=== PATIENT | female | born 1995 | race Asian ===

== ENCOUNTER 2017-12-02 18:01 | Outpatient (CLI) | payer BC, OTHER ==
[~2017-12-02] VITALS: Ht 170.2 cm; Wt 81.8 kg
== END 2017-12-02 19:40 | disposition home or self-care (01) ==
LOC: LDOP 18:01
PROVIDERS: ATTEND Obstetrics & Gynecology
DX: O47.9 False labor, unspecified (principal); O99.89 Other specified diseases and conditions complicating pregnancy, childbirth and the puerperium; M94.0 Chondrocostal junction syndrome [Tietze]; Z3A.00 Weeks of gestation of pregnancy not specified
CPT/HCPCS: 59025; 99211; G0463

== ENCOUNTER 2017-12-02 19:48 | Emergency (ER) | payer BC, OTHER ==
[~2017-12-02] VITALS: Ht 170.2 cm; Wt 81.8 kg
[2017-12-02 20:33] LABS: BASOPHILS # (AUTO) 0.04 x10^3/uL (0-0.1); BASOPHILS % (AUTO) 0 % (0-1); EOSINOPHILS # (AUTO) 0.04 x10^3/uL (0-0.4); EOSINOPHILS % (AUTO) 0 % (1-7); LYMPHOCYTES # (AUTO) 1.65 x10^3/uL (1-3.4); LYMPHOCYTES % (AUTO) 17 % (22-44); MD NO; MEAN CORPUSCULAR HEMOGLOBIN 31.3 pg (27.0-34.8); MEAN CORPUSCULAR HGB CONC 34.2 g/dL (32.4-35.8); MEAN CORPUSCULAR VOLUME 91.7 fL (80-100); MEAN PLATELET VOLUME 9.3 fL (7.4-10.4); MONOCYTES # (AUTO) 0.57 x10^3/uL (0.2-0.8); MONOCYTES % (AUTO) 6 % (2-9); NEUTROPHILS # (AUTO) 7.69 x10^3/uL (1.8-6.8); NEUTROPHILS % (AUTO) 77 % (42-75); PLATELET COUNT 248 x10^3/uL (130-400); RED BLOOD COUNT 4.17 x10^6/uL (3.82-5.3); RED CELL DISTRIBUTION WIDTH 13.7 % (9.6-15.2)
[2017-12-02 20:42] LABS: ALBUMIN 2.9 g/dL (3.4-5.0); ANION GAP 9 mmol/L (5-15); CALCIUM 8.7 mg/dL (8.5-10.1); CHLORIDE 108 mmol/L (98-107); CREATININE 0.54 mg/dL (0.55-1.02)
[2017-12-02] MEDS ORDERED: SODIUM CHLORIDE FLUSH 10ML SYR IVF ONE (21:00)
[2017-12-02 21:05] VITALS: BP 110/71
== END 2017-12-02 21:37 | disposition home or self-care (01) ==
LOC: ED 20:38
DX: O26.893 Other specified pregnancy related conditions, third trimester (principal); R07.1 Chest pain on breathing; Z3A.38 38 weeks gestation of pregnancy
CPT/HCPCS: 36415; 71045; 80048; 82040; 85025; 85379; 99285

== ENCOUNTER 2017-12-04 01:29 | Inpatient (IN) | payer BC, OTHER ==
[~2017-12-04] VITALS: Ht 170.2 cm; Wt 82.0 kg
[2017-12-04 02:05] VITALS: BP 105/66
[2017-12-04] MEDS ORDERED: OXYTOCIN 30U/ 0.9% NaCL 500ML 500 ML IV ONE (02:32)
[2017-12-04] MEDS ORDERED: NEWBORN KIT ONE (02:41)
[2017-12-04] MEDS ORDERED: ONDANSETRON 2MG/ML, 2ML IVPush PRN (03:00)
[2017-12-04] MEDS ORDERED: FENTANYL PF 100 MCG/2ML IV PRN (03:00)
[2017-12-04] MEDS ORDERED: FENTANYL PF 100 MCG/2ML IVPush PRN (03:00)
[2017-12-04] MEDS: LACTATED RINGERS 1,000 ML IV SCH ×3 (03:03→22:28)
[2017-12-04 03:18] LABS: BASOPHILS # (AUTO) 0.04 x10^3/uL (0-0.1); BASOPHILS % (AUTO) 0 % (0-1); EOSINOPHILS # (AUTO) 0.06 x10^3/uL (0-0.4); EOSINOPHILS % (AUTO) 1 % (1-7); LYMPHOCYTES # (AUTO) 1.78 x10^3/uL (1-3.4); LYMPHOCYTES % (AUTO) 16 % (22-44); MD NO; MEAN CORPUSCULAR HEMOGLOBIN 31.2 pg (27.0-34.8); MEAN CORPUSCULAR VOLUME 91.6 fL (80-100); MEAN PLATELET VOLUME 9.2 fL (7.4-10.4); MONOCYTES % (AUTO) 6 % (2-9); NEUTROPHILS # (AUTO) 8.68 x10^3/uL (1.8-6.8); NEUTROPHILS % (AUTO) 77 % (42-75); PLATELET COUNT 264 x10^3/uL (130-400); RED BLOOD COUNT 4.19 x10^6/uL (3.82-5.3); RED CELL DISTRIBUTION WIDTH 13.3 % (9.6-15.2)
[2017-12-04] MEDS ORDERED: LIDOCAINE/PF 1%, 30ML ONE (05:44)
[2017-12-04] MEDS ORDERED: MISOPROSTOL 200 MCG TABLET ONE (05:44)
[2017-12-04] MEDS ORDERED: FENTANYL/BUPIV./NS/PF 250 ML EPIDCONT SCH ×2 (07:26→13:58)
[2017-12-04] MEDS ORDERED: FENTANYL PF 500 MCG, BUPIVACAINE/PF 0.5%, 30ML 62.5 ML in SODIUM CHLORIDE 0.9% 177.5 ML EPIDCONT SCH (08:30)
[2017-12-04] MEDS ORDERED: LACTATED RINGERS 1,000 ML IV SCH (13:58)
[2017-12-04] MEDS ORDERED: NALOXONE 0.4 MG/ML, 1ML IVPush PRN (14:00)
[2017-12-04] MEDS ORDERED: LACTATED RINGERS 1,000 ML IVBOLUS PRN (14:00)
[2017-12-04] MEDS ORDERED: EPHEDRINE 50 MG/ML, 1ML IVPush PRN (14:00)
[2017-12-04] MEDS ORDERED: BUPIVACAINE 0.25% ONE (14:01)
[2017-12-04] MEDS: D5%-LACTATED RINGERS 1,000 ML IV SCH ×2 (14:20→22:28)
[2017-12-04] MEDS ORDERED: OXYTOCIN 30U/ 0.9% NaCL 500ML 500 ML ONE (16:33)
[2017-12-04] MEDS ORDERED: OXYTOCIN 30U/ 0.9% NaCL 500ML 500 ML IV PRN (17:56)
[2017-12-04] MEDS ORDERED: CEFAZOLIN 1,000 MG in SODIUM CHLORIDE 0.9% 50 ML IV ONE (18:00)
[2017-12-04] MEDS ORDERED: ACETAMINOPHEN 500 MG TABLET PO ONE (18:00)
[2017-12-04] MEDS ORDERED: ACETAMINOPHEN 325 MG TABLET ONE (18:03)
[2017-12-04] MEDS ORDERED: CEFAZOLIN PMX 1GM/50ML 50 ML IVPB ONE (18:30)
[2017-12-04 22:53] VITALS: BP 116/61
[2017-12-04] MEDS ORDERED: GENTAMICIN PER PHARMACY MC PRN (23:00)
[2017-12-04] MEDS: GENTAMICIN 400 MG in SODIUM CHLORIDE 0.9% 100 ML IV SCH (23:17)
[2017-12-04] MEDS ORDERED: PHARMACOKINETIC MONITORING MC PRN (23:30)
[2017-12-04] MEDS ORDERED: PHARMACOKINETIC CONSULTATION MC ONE (23:30)
[2017-12-05] MEDS ORDERED: OXYTOCIN 30U/ 0.9% NaCL 500ML 500 ML ONE (02:19)
[2017-12-05] MEDS: OXYTOCIN 30U/ 0.9% NaCL 500ML 500 ML IV SCH ×3 (02:22→22:17)
[2017-12-05] MEDS: CEFAZOLIN PMX 1GM/50ML 50 ML IV SCH ×3 (02:22→18:30)
[2017-12-05] MEDS ORDERED: ONDANSETRON 2MG/ML, 2ML IV PRN (02:30)
[2017-12-05] MEDS ORDERED: METHYLERGONOVINE 0.2 MG/ML IM PRN (02:30)
[2017-12-05] MEDS ORDERED: OXYcodone/APAP 5/325MG TABLET PO PRN ×2 (02:30)
[2017-12-05] MEDS ORDERED: MISOPROSTOL 200 MCG TABLET PO PRN (02:30)
[2017-12-05] MEDS ORDERED: CARBOPROST TROMETHAMINE 250 MCG/ML, 1ML IM PRN (02:30)
[2017-12-05] MEDS ORDERED: RHOGAM FROM BLOOD BANK 1 NOTE EA IM/IV ONE (02:30)
[2017-12-05] MEDS ORDERED: IBUPROFEN 600 MG TABLET ONE (03:13)
[2017-12-05] MEDS ORDERED: IBUPROFEN 800 MG TABLET ONE (03:16)
[2017-12-05] MEDS: IBUPROFEN 800 MG TABLET PO PRN (03:18)
[2017-12-05 04:30] VITALS: BP 113/74
[2017-12-05 07:52] VITALS: BP 100/64
[2017-12-05 09:59] LABS: MEAN CORPUSCULAR HEMOGLOBIN 30.8 pg (27.0-34.8); MEAN CORPUSCULAR HGB CONC 33.8 g/dL (32.4-35.8); MEAN CORPUSCULAR VOLUME 91.2 fL (80-100); MEAN PLATELET VOLUME 9.2 fL (7.4-10.4); PLATELET COUNT 234 x10^3/uL (130-400); RED BLOOD COUNT 3.89 x10^6/uL (3.82-5.3); RED CELL DISTRIBUTION WIDTH 13.7 % (9.6-15.2)
[2017-12-05] MEDS: PRENATAL VIT/IRON/FA 1 EACH TABLET PO SCH (10:16)
[2017-12-05] MEDS ORDERED: DOCUSATE 100 MG CAPSULE ONE (10:27)
[2017-12-05 10:32] LABS: MD YES
[2017-12-05 10:35] LABS: BAND#(MANUAL) 3.17 x10^3/uL; BANDS%(MANUAL) 11 % (0-7); LYMPH#(MANUAL) 0.58 x10^3/uL (1-3.4); LYMPHS% (MANUAL) 2 % (22-44); MONOS#(MANUAL) 1.15 x10^3/uL (0.3-2.7); MONOS% (MANUAL) 4 % (2-9); NRBC % (MANUAL) 1 % (0-1); SEGS% (MANUAL) 83 % (42-75)
[2017-12-05 10:37] LABS: <PLATELET ESTIMATE> ADEQUATE; <RBC MORPHOLOGY> NORMAL; LARGE PLATELETS 1+
[2017-12-05 12:38] VITALS: BP 107/69
[2017-12-05 16:32] VITALS: BP 109/68
[2017-12-05 19:50] VITALS: BP 113/77
[2017-12-05] MEDS: GENTAMICIN 400 MG in SODIUM CHLORIDE 0.9% 100 ML IV SCH (23:24)
[2017-12-06 00:28] VITALS: BP 112/70
[2017-12-06] MEDS: CEFAZOLIN PMX 1GM/50ML 50 ML IV SCH (02:36)
[2017-12-06] MEDS: OXYTOCIN 30U/ 0.9% NaCL 500ML 500 ML IV SCH (08:17)
[2017-12-06] MEDS: PRENATAL VIT/IRON/FA 1 EACH TABLET PO SCH (08:32)
[2017-12-06 08:35] VITALS: BP 113/76
[2017-12-06] MEDS: IBUPROFEN 800 MG TABLET PO PRN (08:45)
[2017-12-06] MEDS ORDERED: IBUP200T49 PO (14:56)
== END 2017-12-06 16:40 | disposition home or self-care (01) | DRG 775 ==
LOC: LDOP 01:29 → LDIP 02:34 → 2NW 12-05 03:39
PROVIDERS: ADMIT Obstetrics & Gynecology; ATTEND Obstetrics & Gynecology
PROC: 0KQM0ZZ Repair Perineum Muscle, Open Approach (ICD-10-PCS; principal; 2017-12-04)
PROC: 10E0XZZ Delivery of Products of Conception, External Approach (ICD-10-PCS; 2017-12-04)
PROC: 0UQMXZZ Repair Vulva, External Approach (ICD-10-PCS; 2017-12-04)
DX: O42.92 Full-term premature rupture of membranes, unspecified as to length of time between rupture and onset of labor (principal); O41.1030 Infection of amniotic sac and membranes, unspecified, third trimester, not applicable or unspecified; O70.1 Second degree perineal laceration during delivery; Z3A.38 38 weeks gestation of pregnancy; Z37.0 Single live birth; Z88.0 Allergy status to penicillin; Z80.41 Family history of malignant neoplasm of ovary
CPT/HCPCS: 36415; J7121; 80170; 84112; 85025; 86850; 86900; J0690; J3010; J3490; J1580; J2590; J7050; J7120